=== PATIENT | male | born 1975 | race Caucasian/White ===

== ENCOUNTER 2017-01-29 07:41 | Emergency (ER) | payer BC, OTHER ==
--- NOTE | 2017-01-29 07:54 | UC ---
Throat Pain/Nasal Aman HPI - HPI Summary HPI Summary: phlegm stuck in throat, scratchy throat and clearing his throat constantly x 2 weeks. Feels like it's coming from below, not from his nose or sinuses. Denies facial pressure, no fever. Slight cough, nonproductive. No blood in sputum. Has taken Tessalon Perles, cough syrup with codeine, and started methylprednisolone 3 days ago. Slight improvement with steroid. - History of Current Complaint Stated Complaint: SORE THROAT Time Seen by Provider: 01/29/17 07:51 Hx Obtained From: Patient Onset/Duration: Gradual Onset, Lasting Weeks, Still Present Severity: Moderate Pain Intensity: 0 Pain Scale Used: 0-10 Numeric Cough: Nonproductive Associated Signs & Symptoms: Negative: Wheezing, Hoarseness, Sinus Discomfort, Fever - Epiglottits Risk Factors Epiglottis Risk Factors: Negative - Allergies/Home Medications Allergies/Adverse Reactions: Allergies Allergy/AdvReac Type Severity Reaction Status Date / Time NSAIDs Allergy Intermediate Hypertension, Verified 01/29/17 08:17 Tachycardia Home Medications: Home Medications Benzonatate CAP* [Tessalon 100 MG CAP*] 100 mg PO TID PRN 01/29/17 [History Confirmed 01/29/17] Cough Syrup W/Codeine 1 teasp TID 01/29/17 [History Confirmed 01/29/17] methylPREDNISolone TAB* [Medrol TAB*] 4 - 8 mg PO .SEE ROBERTH 01/29/17 [History Confirmed 01/29/17] PMH/Surg Hx/FS Hx/Imm Hx Endocrine History Of: Denies: Diabetes, Thyroid Disease, Hyperthyroidism, Hypothyroidism, Dyslipidemia Cardiovascular History Of: Reports: Hypertension - NOT TREATED Denies: Cardiac Disorders, Pacemaker/ICD, Myocardial Infarction, Congestive Heart Failure, Atrial Fibrillation, Deep Vein Thrombosis, Bleeding Disorders Respiratory History Of: Reports: COPD - new onset, EARLY ONSET, Asthma, Bronchitis GI/ History Of: Reports: Gastroesophageal Reflux - Shields's esophagus. He was seen in past., Kidney Stones - HAS HAD MANY TIMES Denies: Ulcer, Gastrointestinal Bleed, Gall Bladder Disease, Diverticulitis, Renal Disease, Urosepsis Neurological History Of: Reports: Seizures - FOR THE PAST 2 YEARS SEES , Migraine Denies: TIA, CVA, Dementia Psychological History Of: Reports: Anxiety, Depression, Bipolar Disorder Cancer History Of: Denies: Lung Cancer, Colorectal Cancer, Breast Cancer, Prostate Cancer, Cervical Cancer Other History Of: Negative For: HIV, Hepatitis B, Hepatitis C, Anticoagulant Therapy - Surgical History Surgical History: Yes Surgery Procedure, Year, and Place: TRIPLE HERNIA A [facility]. 1999 LEFT INGUINAL HERNIA [facility]. 2009 SURGERY RIGHT EAR [place] - Family History Known Family History: Positive: Cardiac Disease, Hypertension, Diabetes - Social History Alcohol Use: Occasionally Substance Use Type: None, Prescribed Smoking Status (MU): Former Smoker Type: Cigarettes Amount Used/How Often: 2 PPD Length of Time of Smoking/Using Tobacco: 22 Years Have You Smoked in the Last Year: No When Did the Patient Quit Smoking/Using Tobacco: 12/04/11 - Immunization History Most Recent Influenza Vaccination: July 2016 Most Recent Tetanus Shot: up to date Review of Systems Constitutional: Negative ENT: Sore Throat, Nasal Discharge Respiratory: Cough Cardiovascular: Negative Neurological: Negative Psychological: Negative All Other Systems Reviewed And Are Negative: Yes Physical Exam Triage Information Reviewed: Yes Appearance: No Pain Distress, Well-Nourished, Ill-Appearing - mild Vital Signs: BP 140/92 noted in pt with hx HTN Vital Signs Reviewed: Yes Eyes: Positive: Conjunctiva Clear ENT: Positive: Pharyngeal erythema, TMs normal, Other: - frontal sinus tenderness, turbinates not swollen. Negative: Tonsillar swelling, Muffled/ hoarse voice Respiratory: Positive: Lungs clear, Normal breath sounds, No respiratory distress Cardiovascular: Positive: RRR, No Murmur, Pulses Normal, Brisk Capillary Refill Musculoskeletal: Positive: Strength Intact, ROM Intact Neurological: Positive: Alert, Muscle Tone Normal Psychological Exam: Normal Skin Exam: Normal Throat Pain/Nasal Course/Dx - Course Course Of Treatment: rapid A neg - Differential Dx/Diagnosis Differential Diagnosis/HQI/PQRI: Laryngitis, Otitis Media, Pharyngitis, Sinusitis, URI, Other - bronchitis Provider Diagnoses: bronchitis. sinusitis. BP in poor control in pt with dx HTN Discharge - Discharge Plan Condition: Stable Disposition: HOME Prescriptions: Amoxicillin/Clavulanate TAB* [Augmentin TAB 875*] 875 mg PO BID #20 tab guaiFENesin ER TAB [Mucinex*] 1,200 mg PO BID #20 tab.er Patient Education Materials: Sinusitis (ED), Acute Bronchitis (ED) Forms: *Work Release Referrals: Norberto Bowie MD [Medical Doctor] - (Wednesday02/01/17 at 14:15pm) Rogelio Croft DO [Primary Care Provider] -
[2017-01-29 08:17] VITALS: BP 140/92
== END 2017-01-29 09:30 | disposition home or self-care (01) ==
LOC: UCCORT 07:41
DX: J40 Bronchitis, not specified as acute or chronic (principal); J32.9 Chronic sinusitis, unspecified; I10 Essential (primary) hypertension; Z88.6 Allergy status to analgesic agent; Z87.891 Personal history of nicotine dependence
CPT/HCPCS: 87651; 99212; G0463

== ENCOUNTER 2017-03-25 12:09 | Emergency (ER) | payer OTHER ==
[2017-03-25 12:20] VITALS: BP 148/88
--- NOTE | 2017-03-25 12:41 | UC ---
Throat Pain/Nasal Aman HPI - HPI Summary HPI Summary: Was seen 01/29/17 and treated with augmentin, steroids, tessalon for " respiratory infection." Also followed up with ENT and was Rx inhaled steroids. States his breathing/coughing is completely improved, but he has not stopped having R-sided throat irritation and the feeling of mucus collection. Constant throat-clearing, discomfort. Denies recent fever or vomiting. - History of Current Complaint Chief Complaint: UCRespiratory Stated Complaint: RIGHT SIDE SORE THROAT Time Seen by Provider: 03/25/17 12:17 Hx Obtained From: Patient Onset/Duration: Gradual Onset, Lasting Weeks Severity: Moderate Cough: Nonproductive - throat-clearing Associated Signs & Symptoms: Positive: Hoarseness. Negative: Wheezing, Nasal Discharge - Allergies/Home Medications Allergies/Adverse Reactions: Allergies Allergy/AdvReac Type Severity Reaction Status Date / Time NSAIDs Allergy Intermediate Hypertension, Verified 03/25/17 12:20 Tachycardia PMH/Surg Hx/FS Hx/Imm Hx Endocrine History Of: Denies: Diabetes, Thyroid Disease, Hyperthyroidism, Hypothyroidism, Dyslipidemia Cardiovascular History Of: Reports: Hypertension - NOT TREATED Denies: Cardiac Disorders, Pacemaker/ICD, Myocardial Infarction, Congestive Heart Failure, Atrial Fibrillation, Deep Vein Thrombosis, Bleeding Disorders Respiratory History Of: Reports: COPD - new onset, EARLY ONSET, Asthma, Bronchitis GI/ History Of: Reports: Gastroesophageal Reflux - Shields's esophagus. He was seen in past., Kidney Stones - HAS HAD MANY TIMES Denies: Ulcer, Gastrointestinal Bleed, Gall Bladder Disease, Diverticulitis, Renal Disease, Urosepsis Neurological History Of: Reports: Seizures - FOR THE PAST 2 YEARS SEES , Migraine Denies: TIA, CVA, Dementia Psychological History Of: Reports: Anxiety, Depression, Bipolar Disorder Cancer History Of: Denies: Lung Cancer, Colorectal Cancer, Breast Cancer, Prostate Cancer, Cervical Cancer Other History Of: Negative For: HIV, Hepatitis B, Hepatitis C, Anticoagulant Therapy - Surgical History Surgical History: Yes Surgery Procedure, Year, and Place: TRIPLE HERNIA A [facility]. 1999 LEFT INGUINAL HERNIA [facility]. 2009 SURGERY RIGHT EAR [place] - Family History Known Family History: Positive: Cardiac Disease, Hypertension, Diabetes - Social History Occupation: Employed Full-time Alcohol Use: Occasionally Substance Use Type: None, Prescribed Smoking Status (MU): Former Smoker Type: Cigarettes Amount Used/How Often: 2 PPD Length of Time of Smoking/Using Tobacco: 22 Years Have You Smoked in the Last Year: No When Did the Patient Quit Smoking/Using Tobacco: 12/04/11 - Immunization History Most Recent Influenza Vaccination: July 2016 Most Recent Tetanus Shot: up to date Review of Systems Constitutional: Negative Skin: Negative Eyes: Negative ENT: Sore Throat, Other - PND Respiratory: Negative Cardiovascular: Negative Gastrointestinal: Negative Genitourinary: Negative Motor: Negative Neurovascular: Negative Musculoskeletal: Negative Neurological: Negative Psychological: Negative All Other Systems Reviewed And Are Negative: Yes Physical Exam Triage Information Reviewed: Yes Appearance: Well-Appearing, No Pain Distress, Well-Nourished Vital Signs: Initial Vital Signs Temp 98 F 03/25/17 12:16 Pulse 80 03/25/17 12:16 Resp 16 03/25/17 12:16 BP 148/88 03/25/17 12:16 Pulse Ox 100 03/25/17 12:16 Vital Signs Reviewed: Yes Eye Exam: Normal Eyes: Positive: Conjunctiva Clear ENT: Positive: Hearing grossly normal, Pharynx normal, TMs normal. Negative: Nasal congestion, Tonsillar exudate Dental Exam: Normal Neck: Positive: Nontender, Enlarged Nodes @ - ?R>L cervical? Respiratory Exam: Normal Respiratory: Positive: Chest non-tender, Lungs clear, Normal breath sounds, No respiratory distress, No accessory muscle use Cardiovascular Exam: Normal Cardiovascular: Positive: RRR, No Murmur Musculoskeletal Exam: Normal Neurological Exam: Normal Neurological: Positive: Alert Psychological Exam: Normal Skin Exam: Normal Throat Pain/Nasal Course/Dx - Differential Dx/Diagnosis Provider Diagnoses: Post-nasal drip. rhinitis Discharge - Discharge Plan Condition: Stable Disposition: HOME Patient Education Materials: Allergic Rhinitis (ED) Referrals: Rogelio Croft DO [Primary Care Provider] - Norberto Bowie MD [Medical Doctor] - Additional Instructions: In addition to the medicines prescribed here, I recommend you take 1-2 diphenhydramine (benadryl) at bedtime to help clear up your nasal congestion. Follow up with Dr. Bowie as planned in 4 days.
== END 2017-03-25 12:57 | disposition home or self-care (01) ==
LOC: UCCORT 12:09
DX: J30.9 Allergic rhinitis, unspecified (principal); I10 Essential (primary) hypertension; J44.9 Chronic obstructive pulmonary disease, unspecified; K22.70 Barrett's esophagus without dysplasia; G43.909 Migraine, unspecified, not intractable, without status migrainosus; G40.909 Epilepsy, unspecified, not intractable, without status epilepticus; F41.8 Other specified anxiety disorders; Z88.6 Allergy status to analgesic agent; Z87.442 Personal history of urinary calculi; Z87.891 Personal history of nicotine dependence
CPT/HCPCS: 87651; 99212; G0463

== ENCOUNTER 2017-04-19 16:01 | Emergency (ER) | payer OTHER ==
[2017-04-19 17:20] VITALS: BP 137/84
[2017-04-19] MEDS ORDERED: Lidocaine 1% MPF* 2 ML VIAL INJ ONE (17:29)
--- NOTE | 2017-04-19 17:34 | UC ---
Skin Complaint HPI - HPI Summary HPI Summary: Patient has small abcess on the inner right thigh, he thinks it started as an ingrown hair. it is red and painful - History of Current Complaint Chief Complaint: UCSkin Time Seen by Provider: 04/19/17 17:09 Stated Complaint: RIGHT LEG SKIN COMPLAINT Hx Obtained From: Patient Onset/Duration: Sudden Onset, Lasting Days Skin Exposure Onset/Duration: Days Ago Timing: Constant Onset Severity: Mild Current Severity: Moderate Location: Discrete Character: Swelling, Pain, Redness, Painful Aggravating: Nothing - Allergy/Home Medications Allergies/Adverse Reactions: Allergies Allergy/AdvReac Type Severity Reaction Status Date / Time NSAIDs Allergy Intermediate Hypertension, Verified 04/19/17 17:20 Tachycardia Home Medications: Home Medications Fluticasone HFA 44 mcg(NF) [Flovent Hfa 44 mcg(NF)] 1 puff INH BID 04/19/17 [ History Confirmed 04/19/17] Mometasone NASAL (NF) [Nasonex (NF)] 2 spray BOTH NARES DAILY PRN 04/19/17 [ History Confirmed 04/19/17] Review of Systems Skin: Other - large red area Eyes: Negative ENT: Negative Respiratory: Negative Cardiovascular: Negative Gastrointestinal: Negative Genitourinary: Negative Motor: Negative Neurovascular: Negative Musculoskeletal: Negative Neurological: Negative Psychological: Negative All Other Systems Reviewed And Are Negative: Yes PMH/Surg Hx/FS Hx/Imm Hx Previously Healthy: Yes Other History Of: Negative For: HIV, Hepatitis B, Hepatitis C, Anticoagulant Therapy - Surgical History Surgical History: Yes Surgery Procedure, Year, and Place: TRIPLE HERNIA A [facility]. 1999 LEFT INGUINAL HERNIA [facility]. 2009 SURGERY [place] - Family History Known Family History: Positive: Cardiac Disease, Hypertension, Diabetes - Social History Alcohol Use: Weekly Substance Use Type: None, Prescribed Smoking Status (MU): Former Smoker Type: Cigarettes Amount Used/How Often: 2 PPD Length of Time of Smoking/Using Tobacco: 22 Years Have You Smoked in the Last Year: No When Did the Patient Quit Smoking/Using Tobacco: 12/04/11 - Immunization History Most Recent Influenza Vaccination: July 2016 Most Recent Tetanus Shot: up to date Physical Exam Triage Information Reviewed: Yes Appearance: Well-Appearing, Well-Nourished, Pain Distress Vital Signs: Initial Vital Signs Temp 97.8 F 06/05/17 17:16 Pulse 77 04/19/17 17:16 Resp 16 04/19/17 17:16 BP 137/84 04/19/17 17:16 Pulse Ox 100 04/19/17 17:16 Vital Signs Reviewed: Yes Eye Exam: Normal ENT Exam: Normal Dental Exam: Normal Neck exam: Normal Respiratory Exam: Normal Cardiovascular Exam: Normal Abdominal Exam: Normal Bowel Sounds: Positive: Present Musculoskeletal Exam: Normal Neurological Exam: Normal Psychological Exam: Normal Skin: Positive: Other - small area of induration, red and warm to touch. Course/Dx - Course Course Of Treatment: hx obtianed, exam performed, meds reviewed, i and d of abscess performed, meds prescribed. - Differential Diagnoses - Skin Complaint Differential Diagnoses: Abscess, Cellulitis, Contact Dermatitis, Urticaria - Diagnoses Provider Diagnoses: abscess Discharge - Discharge Plan Condition: Stable Disposition: HOME Patient Education Materials: Abscess (ED)
== END 2017-04-19 18:03 | disposition home or self-care (01) ==
LOC: UCCORT 16:01
DX: L02.415 Cutaneous abscess of right lower limb (principal); Z88.6 Allergy status to analgesic agent; Z87.891 Personal history of nicotine dependence
CPT/HCPCS: 10060; 99212; G0463

== ENCOUNTER 2018-01-17 08:02 | Emergency (ER) | payer OTHER ==
[2018-01-17 08:58] VITALS: BP 142/102
--- NOTE | 2018-01-17 09:30 | UC ---
Respiratory Complaint HPI - HPI Summary HPI Summary: 42 yo male with a 4-5 day hx of chest tightness denies cough starts this is typical of his exacerbations of COPD no f/c recent trip to [place] - History of Current Complaint Chief Complaint: UCRespiratory Stated Complaint: CONGESTION CHILLS Time Seen by Provider: 01/17/18 09:00 Hx Obtained From: Patient Onset/Duration: Gradual Onset, Lasting Days Timing: Constant Severity Initially: Mild Severity Currently: Mild Pain Intensity: 4 Pain Scale Used: 0-10 Numeric - chest tightness bilat radiating to back Character: Cough: Nonproductive Aggravating Factors: Nothing Alleviating Factors: Nothing Associated Signs And Symptoms: Positive: Negative - Allergies/Home Medications Allergies/Adverse Reactions: Allergies Allergy/AdvReac Type Severity Reaction Status Date / Time NSAIDS (Non-Steroidal Allergy Tachycardia Verified 01/17/18 08:41 Anti-Inflamma and HTN Home Medications: Home Medications Fluticas/Salmet 115/21 HFA(NF) [Advair HFA 115/21 (NF)] 1 puff INH BID 01/17/18 [History Confirmed 01/17/18] PMH/Surg Hx/FS Hx/Imm Hx Previously Healthy: Yes Respiratory History: COPD, Asthma, Bronchitis, Pneumonia Other History Of: Negative For: HIV, Hepatitis B, Hepatitis C, Anticoagulant Therapy - Surgical History Surgical History: Yes Surgery Procedure, Year, and Place: TRIPLE HERNIA A [facility]. 1999 LEFT INGUINAL HERNIA [facility]. 2009 SURGERY RIGHT EAR [place] - Family History Known Family History: Positive: Cardiac Disease, Hypertension, Diabetes - Social History Alcohol Use: Occasionally Substance Use Type: None, Prescribed Smoking Status (MU): Former Smoker Type: Cigarettes Amount Used/How Often: 2 PPD Length of Time of Smoking/Using Tobacco: 22 Years Have You Smoked in the Last Year: No When Did the Patient Quit Smoking/Using Tobacco: 12/04/11 - Immunization History Most Recent Influenza Vaccination: July 2016 Most Recent Tetanus Shot: up to date Review of Systems Constitutional: Negative Skin: Negative Eyes: Negative ENT: Negative Respiratory: Negative Cardiovascular: Chest Pain - tightness Gastrointestinal: Negative Genitourinary: Negative Motor: Negative Neurovascular: Negative Musculoskeletal: Negative Neurological: Negative Psychological: Negative Is Patient Immunocompromised?: No All Other Systems Reviewed And Are Negative: Yes Physical Exam Triage Information Reviewed: Yes Appearance: Well-Appearing, No Pain Distress, Well-Nourished Vital Signs: Initial Vital Signs Temp 98.3 F 01/17/18 08:50 Pulse 83 01/17/18 08:50 Resp 16 01/17/18 08:50 BP 142/102 01/17/18 08:50 Pulse Ox 99 01/17/18 08:50 Vital Signs Reviewed: Yes Eyes: Positive: Conjunctiva Clear ENT: Positive: Hearing grossly normal, Pharynx normal. Negative: Nasal congestion, Nasal drainage, Trismus, Muffled voice, Hoarse voice Neck: Positive: Supple, Nontender, No Lymphadenopathy Respiratory: Positive: Chest non-tender, Lungs clear, Normal breath sounds, No respiratory distress, No accessory muscle use. Negative: Respiratory distress, Decreased breath sounds Cardiovascular: Positive: RRR, No Murmur Abdomen Description: Positive: Nontender, No Organomegaly Musculoskeletal: Positive: ROM Intact, No Edema Psychological Exam: Normal Skin Exam: Normal UC Diagnostic Evaluation - Laboratory O2 Sat by Pulse Oximetry: 99 - normal/not hypoxic - EKG Cardiac Rate: NL Cardiac Rhythm: Sinus: Normal Ectopy: None ST Segment: Normal - q's in III and AVF Re-Evaluation - Re-Evaluation First Eval Re-Evaluation Time: 10:40 Change: Improved - feels improved/tan up some phlegm and able to move more air Respiratory Course/Dx - Differential Dx/Diagnosis Provider Diagnoses: acute exacerbation of COPD Discharge - Discharge Plan Condition: Stable Disposition: HOME Prescriptions: Azithromycin TAB* [Zithromax TAB*] 250 mg PO DAILY #6 tab predniSONE [Deltasone] 40 mg PO DAILY #10 tab Patient Education Materials: Chronic Bronchitis (DC) Forms: *Work Release Referrals: Rogelio Croft DO [Primary Care Provider] - 3 Days
[2018-01-17] MEDS ORDERED: Ipratropium 0.5MG/2.5ML NEB* 0.5 MG/2.5 ML NEB.SOLN INH ONE (09:45)
[2018-01-17] MEDS ORDERED: Albuterol 2.5 MG/3 ML NEB.SOL* (0.083%) INH ONE (09:45)
[2018-01-17] MEDS ORDERED: predniSONE TAB* 20 MG PO ONE (09:51)
== END 2018-01-17 10:48 | disposition home or self-care (01) ==
LOC: UCCORT 08:02
DX: J44.1 Chronic obstructive pulmonary disease with (acute) exacerbation (principal); Z88.8 Allergy status to other drugs, medicaments and biological substances; Z87.891 Personal history of nicotine dependence
CPT/HCPCS: 93005; 99213; G0463; J7512